=== PATIENT | female | born 1955 | race Asian ===

== ENCOUNTER 2018-09-17 13:18 | Emergency (ER) | END 2018-09-17 14:03 | disposition home or self-care (01) ==

== ENCOUNTER 2019-06-16 13:38 | Emergency (ER) | payer OTHER ==
[~2019-06-16] VITALS: Ht 162.6 cm; Wt 71.8 kg
[~2019-06-16 13:38] MED LIST: AMLO-218 PO; ASPI-817 PO; CALC-143 PO; CEPH-443 PO; FLUT9.9S NASAL; HYDR12.58 PO; QUIN20TA PO; SIMV20TA2 PO
[2019-06-16 13:45] VITALS: BP 136/74; PULSE 86; RESP 18; Ht 162.6 cm; Wt 71.8 kg
== END 2019-06-16 14:50 | disposition home or self-care (01) ==
LOC: FTE 13:38
DX: N39.0 Urinary tract infection, site not specified (principal)
CPT/HCPCS: 81003; 87086; Z7502; 99283